=== PATIENT | female | born 1935 | race Caucasian/White ===

== ENCOUNTER 2023-11-13 08:55 | Day surgery (SDC) | payer MEDICARE, SELFPAY ==
[2023-11-13] VITALS (17 sets, daily range): BP systolic 101–141; BP diastolic 6–106; BMI 27.5
[2023-11-13] MEDS: LOW STRENGTH ASPIRIN 324 MG PO (10:02)
[2023-11-13] MEDS: NSS 216 ML IV (10:03)
[2023-11-13 11:26] LABS: ACT-LR - POC 242 Seconds (116-155)
[2023-11-13 12:16] LABS: ACT-LR - POC 279 Seconds (116-155)
[2023-11-13] MEDS: NITROLINGUAL SPRAY 1 BOTTLE SL (12:43)
--- NOTE | 2023-11-13 12:56 | PTCARENOTE ---
Pt arrived to recovery room post cardiac cath with unsuccessful attempt at stenting pt's mid RCA. Pt arrived to recovery room c/o left anterior chest pain rated 3/10 and described as burning. Lo Avendano NP made aware and ordered NTG spray x1. NTG
spray given and pt's chest pain decreased to 1/10. Lo Avendano NP also ordered imdur 30mg po stat. Pharmacy made aware and awaiting medication. EKG done and given to Lo Avendano NP. Lo Avendano NP at pt bedside assessing pt. Awaiting imdur. No further
treatment ordered at this time.
[2023-11-13] MEDS: IMDUR (EXTENDED RELEASE) 30 MG PO (13:01)
--- NOTE | 2023-11-13 13:05 | PTCARENOTE ---
Pt states she is pain free at this time.
--- NOTE | 2023-11-13 13:19 | ITS.CL.CATH ---
[employer] Leader - Catheterization
Cardiac Catheterization
Procedure Report:
LEFT HEART CATHETERIZATION
Date of Procedure: November 13, 2023
Referring: Issa Echevarria DO
PROCEDURES:
1. Left heart cath, coronary angiogram
2. Ultrasound-guided access.
3. Attempted percutaneous coronary artery intervention of a heavily calcified focal 80 to 90% mid RCA stenosis without success.
INDICATION: 88-year-old female with past medical history of hypertension, hyperlipidemia, paroxysmal atrial fibrillation on longstanding Eliquis, coronary artery disease status post prior left circumflex and LAD stents in 2016, ostial left main
stent in June 2022 on chronic Plavix who presents with 1 month history of exertional chest discomfort and dyspnea with some improvement after long-acting nitrate was started as an outpatient about a week ago now referred for left heart
catheterization to rule out obstructive CAD.
ACCESS: Left radial artery, 6 Sen[place]alese sheath, under ultrasound guidance
HEMODYNAMICS : (mmHg)
AO (s/d) : 132/59
LV (s/d) : 128/18
LVEDP : 30
CORONARY FINDINGS
DOMINANCE: Right
LEFT MAIN: Large caliber vessel that gives rise to the LAD and LCx branches. Prior left main 6 send from June 2022 is widely patent.
LEFT ANTERIOR DESCENDING:Large caliber vessel that gives off only small caliber diagonal branches as it courses along the anterior inter-ventricular groove before wrapping around the cardiac apex. Prior ostial/proximal and mid LAD stents are patent
CIRCUMFLEX: Large caliber vessel that gives off one major large caliber obtuse marginal (OM) branches as it courses along the atrio-ventricular (AV) groove. �Ostial circumflex has eccentric 40% stenosis. Distal left circumflex artery at the takeoff
of a small left posterolateral branch has an eccentric 60 to 70% stenosis, which is a very small caliber vessel.
RIGHT CORONARY ARTERY: Anomalous large caliber dominant vessel which was engaged using a 5 Senegalese AL-1 diagnostic catheter that gives rise to a moderate caliber posterior descending artery (RPDA) and small caliber postero-lateral ventricular (RPLV)
branches distally. �The mid-RCA has a stable 80-90% stenosis, which appears similar to prior cath in May 2022.�
ATTEMPTED CORONARY INTERVENTION TO MID RCA: Given new symptoms, the only targeted from a percutaneous approach appeared to be the mid RCA high-grade lesion though not significantly different from prior heart catheterization. Given patient had
already been on multiple antianginals, we decided to move forward with attempting percutaneous intervention. Additional heparin was given to maintain a therapeutic ACT throughout the case. A 6 Sen[place]e AL-1 guide catheter was used to selectively
engage the RCA. Initially we tried a 190 cm 0.014 power turn flex coronary wire however we could not navigate across the mid RCA calcified lesion with a wire directing into the RV marginal branch. At this point we removed the power turn flex wire
and instead brought in a 300 cm airplane pilot photogrammetry 50 through a 0.014 mini microcatheter to help provide additional support. Despite multiple passes we could not cross the calcified lesion with the wire being deflected into the RV marginal branch. We further
escalated our wire choice and used a Fielder XT with a CHAIR PAD MAKER band on the tip of the wire and despite multiple attempts we still could not cross the calcified lesion. Patient reported some chest discomfort and just generally feeling uncomfortable on
the table. I did discussion with one of my senior interventional cardiology partners, Dr. Remy Reddy at this point and we discussed potentially escalating wires further to a airplane pilot photogrammetry 200 however given her advanced age with potential risk for
dissecting the vessel or perforating the vessel in a otherwise stable lesion which had persistent WEI-3 flow, I decided to stop at this point and pursue aggressive medical therapy.
RADIATION SUMMARY: Fluoro Time (min): 29.4, Dose (mGy): 857.6, DAP (Gy.cm2) : 67.6
Closure Device: Vascular band over left radial artery, 11 cc of air
CONCLUSIONS
1. Prior left main, LAD and left circumflex stents are patent with otherwise small vessel coronary artery disease.
2. 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 Attempted percutaneous coronary artery intervention to this lesion with failure to cross the calcified lesion with a wire and therefore this was aborted.
3. Significantly elevated LVEDP at 30 mmHg.
RECOMMENDATIONS
1. Optimize goal-directed medical therapy for stable angina and IV diuresis to optimize filling pressures.
2. Monitor overnight on telemetry to ensure she remains stable from a symptomatic standpoint.
3. Wean radial band per protocol.
4. Aggressive management of cardiovascular risk factors
Copy to: Issa Echevarria DO
Janki Shah MD, FACC, [facility]
--- NOTE | 2023-11-13 13:58 | PTCARENOTE ---
Received the patient from the labor specialist in her bed. The patient is aaox3, VSS, 98% on RA. Left wrist R-band in place. A positive left radial pulse is noted. Her left wrist is ecchymotic. She has no c/o pain or discomfort. Sinus perry is noted on the
monitor with a HR of 57. I instructed her on her activity restrictions and expect oob time. I oriented her to her room and her call may is within reach.
--- NOTE | 2023-11-13 14:01 | CM ---
Reviewed chart. Met with Mrs. Priest to review discharge plans. She states prior to admission she resides alone in a first floor apartment wthout any steps to enter. She states prior to admission she ambulates with a single point cane. She states
she has a single point cane and no other DME in the home. She states she her two daughters resides nearby and are supportive. She states she has a prescription plan and uses [facility]. The discharge plan is to return home when medically stable.
[2023-11-13] MEDS: PULMICORT 0.5 MG INH (14:23)
[2023-11-13] MEDS: TOPROL XL 12.5 MG PO (19:55)
[2023-11-13] MEDS: NORVASC 2.5 MG PO (19:55)
[2023-11-13] MEDS: PEPCID 20 MG PO (19:56)
--- NOTE | 2023-11-13 20:58 | PTCARENOTE ---
Pt ambulating well as a stand by and SPC. plan of care discussed for the evening. Reminded weight baring restrictions. L wrist CDI with ecchy. around the dressing. SR BBB on the monitor. no complaints of chest pain at this time. + radial pulse.
call may within reach
[2023-11-13] MEDS: LIPITOR 40 MG PO (22:54)
[2023-11-14 02:30] VITALS: BMI 27.3
[2023-11-14 02:32] VITALS: BP 159/72
[2023-11-14] MEDS: PULMICORT 0.5 MG INH (02:41)
[2023-11-14 03:10] LABS: Hematocrit 30.1 % (37.0-47.0); Hemoglobin 9.6 g/dL (12.0-16.0); Mean Corp Hgb Conc. 31.9 g/dL (33.0-37.0); Mean Corpuscular Hgb 26.9 pg (27.0-31.0); Mean Corpuscular Volume 84.3 fL (81.0-99.0); Mean Platelet Volume 12.3 fL (7.4-10.4); Platelet Count 149 10^3/uL (130-400); Red Blood Cell Count 3.57 10^6/uL (4.20-5.40); Red Cell Dist. Width 13.6 % (11.5-14.5); White Blood Cell Count 6.2 10^3/uL (4.8-10.8)
[2023-11-14 03:38] LABS: Blood Urea Nitrogen 24 mg/dl (7-17); Calcium 9.7 mg/dl (8.4-10.2); Carbon Dioxide 25 mmol/L (22-30); Chloride 108 mmol/L (98-107); Estimated Creatinine Clearance 37 ml/min; Glucose 101 mg/dl (70-99); HDL Cholesterol 52 mg/dl; LDL Cholesterol, Calculated 14 mg/dl; Potassium 4.5 mmol/L (3.5-5.1); Sodium 140 mmol/L (135-145); Total Cholesterol 80 mg/dl (50-199); Triglyceride 71 mg/dl (10-149); Very Low Density Lipoprotein 14 mg/dl (0-30); eGFR 53.85
[2023-11-14] MEDS: IMDUR (EXTENDED RELEASE) 60 MG PO (06:05)
[2023-11-14] MEDS: PEPCID 20 MG PO (06:05)
[2023-11-14 06:06] VITALS: BP 177/77
[2023-11-14 07:34] VITALS: BP 130/88
--- NOTE | 2023-11-14 08:10 | PTCARENOTE ---
Assumed care of pt from prev nsg shift. Pt AAOx3 w/no c/o CP or SOB at this time. Pt reports the 'chest discomfort & indigestion she had earlier is gone'. Pt w/VS stable w/HR in 60's & pt is SR on telemetry monitoring. Plan of care discussed w/ pt.
Pt hopeful for D/C today. Pt w/call may within reach & plan of care ongoing.
--- NOTE | 2023-11-14 08:43 | W.PN.CARDCBS ---
Addendum entered and electronically signed by Kamila Herrera DO 11/14/23 11:09:
I saw and examined the patient.
The Trade Show Coordinator's note was reviewed and I agree with the note.
Comment: Seen and examined. Patient reported indigestion this morning which is now resolved. Currently chest pain-free. Denies shortness of breath. No wrist pain. Radial site intact.
General: No acute distress, AAOX3
Neck: Negative JVD
Heart: Regular, positive S1/S2, 2/6 SM
Lungs: CTA b/l, negative wheezes/rales/rhonchi
Abd: Positive BS, NT/ND, neg rebound/rigidity/guarding
Ext: No edema. Right radial site with minimal ecchymosis. +2 radial pulse
Neuro: nonfocal
Plan:
History of coronary artery disease status post multiple prior stents status postcardiac catheterization for unstable angina
-post unsuccessful attempt at PCI RCA, unable to cross calcified lesion
-Episode of 'indigestion' this morning now chest pain-free. Will continue to monitor and have nursing ambulate patient around floor later today. If remains asymptomatic could consider discharge home later today
-Optimize antianginal medical regimen: Will increase Imdur to 60 mg daily
-Continue statin:LDL 14, total cholesterol 80, triglycerides 71, HDL 52.
-Had elevated LVEDP at the time of cardiac catheterization status post IV Lasix
-Resume oral Lasix
Lab work with hemoglobin dropped from 11-9.6 doubt obvious bleeding and stable radial site
-Repeat labs pending
-Repeat echocardiogram ordered
-continue Plavix, resume Eliquis if repeat H&H if stable
Possible discharge home later today pending repeat labs and reassessment of symptoms with ambulation
Original Note:
Today's Communication / Plan
-
medical management of CAD
titrate isosorbide
oob ambulate
Impression / Plan
-
PCP: Cherrie Martinez MD
CDY: Issa Echevarria, DO
88-year-old female with past medical history of hypertension, hyperlipidemia, paroxysmal atrial fibrillation on longstanding Eliquis, coronary artery disease status post prior left circumflex and LAD stents in 2015, ostial left main stent in June
2022 on chronic Plavix who presents with 1 month history of exertional chest discomfort and dyspnea with some improvement after long-acting nitrate was started as an outpatient about a week ago now referred for left heart catheterization to rule out
obstructive CAD.
Impresssion:
CAD PCI LCx and LAD 2015
PCI LM 06/2022, with residual 80-90% RCA stenosis treated medically
HTN
HLD
PAF
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
chronic Anemia
HOCM/severe asymmetric septal hypertrophy/LVH
Asthma/COPD
Gout
CVA 07/2022
PAD/BRIJESH
GERD
Osteoporosis
Diverticulosis
Plan:
post unsuccessful attempt at PCI RCA, unable to cross calcified lesion
elevated LVEDP - IV lasix 20 given
Hbg dropped from 11-9.6, ? dilutional will recheck at 12
Will check f/u Echo for effusion
denies cp, sob, but c/o reflux which is her anginal equivalent
continue Plavix, resume Eliquis after repeat H&H if stable will resume
Will increase isosorbide to 60mg daily, continue metoprolol and amlodipine
oob ambulate to assess symptoms
Lipids good, continue atorvastatin 40mg
oob ambulate
reasess this afternoon for poss d/c home
CONCLUSIONS
1. Prior left main, LAD and left circumflex stents are patent with otherwise small vessel coronary artery disease.
2. 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 Attempted percutaneous coronary artery intervention to this lesion with failure to cross the calcified lesion with a wire and therefore this was aborted.
3. Significantly elevated LVEDP at 30 mmHg.
Progress Note - Cartoon Designer
Subjective
Date of Service: November 14, 2023
no cp, sob, mild indigestion/reflux
Objective
Labs:
11/14/23 02:35
11/14/23 02:35
Labs
Hgb 9.6 g/dL (12.0-16.0) L 11/14/23 02:35
Hct 30.1 % (37.0-47.0) L 11/14/23 02:35
Plt Count 149 10^3/uL (130-400) 11/14/23 02:35
Sodium 140 mmol/L (135-145) 11/14/23 02:35
Potassium 4.5 mmol/L (3.5-5.1) 11/14/23 02:35
BUN 24 mg/dl (7-17) H 11/14/23 02:35
Creatinine 1.0 mg/dL (0.6-1.0) 11/14/23 02:35
Glucose 101 mg/dl (70-99) H 11/14/23 02:35
Vital Signs and I&O:
Vital Signs
Temp Pulse Resp BP Pulse Ox
98.1 F 80 18 130/88 95
11/14/23 07:32 11/14/23 07:34 11/14/23 07:32 11/14/23 07:34 11/14/23 07:32
Vital Signs
Temp Pulse Resp BP Pulse Ox
98.1 F 80 18 130/88 95
11/14/23 07:32 11/14/23 07:34 11/14/23 07:32 11/14/23 07:34 11/14/23 07:32
Intake & Output
11/12/23 11/13/23 11/14/23 11/15/23
06:59 06:59 06:59 06:59
Intake Total 1078 / 1078 480 / 480
Output Total 850 / 850
Balance 228 / 228 480 / 480
Physical Exam
Physical Exam
NAD, AOX3
S1, S2, RRR
CTAB, non labored
SNTND Bsx4
R rad site c/d/i, mild ecchymosis
[2023-11-14] MEDS: NORVASC 2.5 MG PO (09:14)
[2023-11-14] MEDS: ELIQUIS 5 MG PO (09:14)
[2023-11-14] MEDS: PLAVIX 75 MG PO (09:14)
[2023-11-14] MEDS: ZESTRIL 5 MG PO (09:14)
[2023-11-14] MEDS: TOPROL XL 12.5 MG PO (09:15)
[2023-11-14] MEDS: SINGULAIR 10 MG PO (09:15)
[2023-11-14 10:57] LABS: Hematocrit 28.2 % (37.0-47.0); Hemoglobin 9.2 g/dL (12.0-16.0)
[2023-11-14 12:27] VITALS: BP 135/74
--- NOTE | 2023-11-14 15:05 | W.DS.TRANS ---
DC Summary - Survey Technician
-
Discharge Instructions:
Sleep Apnea Risk Low
Discharge Diagnosis/Procedures Angioplasty with stent to RCA
Diet Low Cholesterol
Driving Restrictions No driving for 24 hours
Blood Work Check CBC in 2 weeks
Other Services Cardiac Rehab
Instructions:
Stand-Alone Forms: DC Instructions- Cath/EP Lab
Changes to Home Medications: Yes
Discharge Medications:
DC Medications w/original date entered in [employer]
amlodipine 2.5 mg tablet 2.5 mg PO BID Blood pressure 08/01/15
albuterol sulfate 90 mcg/actuation aerosol inhaler (Ventolin HFA) 2 puff inhalation R Q4 PRN sob/wheezing 06/05/18
calcium carbonate 600 mg-vitamin D3 20 mcg (800 unit) chewable tablet (Caltrate 600 plus D) 1 ea PO DAILY Supplement 06/05/18
lisinopril 5 mg tablet 5 mg PO DAILY Blood pressure 06/05/18
budesonide 0.5 mg/2 mL suspension for nebulization 0.5 mg inhalation R BID PRN SOB 06/27/22
famotidine 20 mg tablet 20 mg PO BID Gastrointestinal issue 06/27/22
furosemide 20 mg tablet 20 mg PO Q48H PRN Fluid retention/Swelling 06/27/22
montelukast 10 mg tablet 10 mg PO DAILY Lung/breathing issues 06/27/22
apixaban 5 mg tablet (Eliquis) 5 mg PO BID Blood clot prevention/tx 08/01/22
atorvastatin 40 mg tablet 40 mg PO HS High cholesterol 08/01/22
clopidogrel 75 mg tablet 75 mg PO DAILY Blood clot prevention/tx 08/01/22
metoprolol succinate 25 mg tablet,extended release 24 hr (Toprol XL) 12.5 mg PO BID 11/13/23
isosorbide mononitrate 30 mg tablet,extended release 24 hr 60 mg (2 x 30 mg) PO DAILY #90 tabs 11/14/23
pantoprazole 40 mg tablet,delayed release (Protonix) 40 mg PO DAILY #30 tabs 11/14/23
Home Medication Changes
new to protonix, increased isosorbide to 60mg daily
Pending Results: Yes
Additional Pending Results:
Echo results
[2023-11-14 15:14] VITALS: BP 148/54
--- NOTE | 2023-11-14 16:02 | PTCARENOTE ---
Pt D/C'd to home w/daughter providing transportation. Pt's IV line & telemetry pack removed. D/C instructions discussed w/pt & pt's daughter. Pt transported out via wheelchair by staff w/personal belongings including cell phone, cane, & clothing.
== END 2023-11-14 16:26 | disposition home or self-care (01) ==
LOC: CATH 08:55
PROVIDERS: Nurse Practitioner Adult Health; ATTENDING PHYSICIAN Internal Medicine Interventional Cardiology; FAMILY PHYSICIAN Family Medicine
DX: I25.10 Atherosclerotic heart disease of native coronary artery without angina pectoris (principal); I25.84 Coronary atherosclerosis due to calcified coronary lesion; I48.0 Paroxysmal atrial fibrillation; Q24.5 Malformation of coronary vessels; E78.5 Hyperlipidemia, unspecified; R07.89 Other chest pain; I11.9 Hypertensive heart disease without heart failure; Z95.5 Presence of coronary angioplasty implant and graft; D64.9 Anemia, unspecified; I42.1 Obstructive hypertrophic cardiomyopathy; J45.909 Unspecified asthma, uncomplicated; J44.9 Chronic obstructive pulmonary disease, unspecified; Z79.01 Long term (current) use of anticoagulants; Z79.02 Long term (current) use of antithrombotics/antiplatelets; Z86.711 Personal history of pulmonary embolism
CPT/HCPCS: 80048; 80061; 85014; 85018; 85027; 85347; 92920; 93005; 93306; 93458; 94640; C1769; C1887; C1894; Q9967

== ENCOUNTER → 2024-01-30 14:19 | Outpatient (REF) | payer MEDICARE, SELFPAY ==
[2024-01-30 15:20] LABS: Blood Urea Nitrogen 20 mg/dl (7-17); Calcium 9.6 mg/dl (8.4-10.2); Carbon Dioxide 28 mmol/L (22-30); Chloride 104 mmol/L (98-107); Glucose 103 mg/dl (70-99); Potassium 4.5 mmol/L (3.5-5.1); Sodium 137 mmol/L (135-145); eGFR 53.85
[2024-01-30 15:31] LABS: NT-proBNP 534 pg/ml
== END ==
LOC: RAD 14:19
PROVIDERS: ATTENDING PHYSICIAN Family Medicine; FAMILY PHYSICIAN Family Medicine
DX: M79.89 Other specified soft tissue disorders (principal); Z86.711 Personal history of pulmonary embolism
CPT/HCPCS: 36415; 80048; 83880; 93970